=== PATIENT | male | born 2000 | race Caucasian/White ===

== ENCOUNTER 2025-03-11 15:06 | Emergency (ER) | payer SELFPAY ==
[2025-03-11] MEDS ORDERED: AFRIN NASAL MIST 15 ML BOT ONE (16:46)
[2025-03-11 17:11] LABS: #Basophils Less than 0.03 10x3/uL (0.0-0.2); #Eosinophils 0.07 10x3/uL (0.0-0.5); #Monocytes 0.59 10x3/uL (0.0-1.1); #Neutrophils 4.85 10x3/uL (1.5-8.4); %Basophils 0.1 % (0.0-2.0); %Eosinophils 1.0 % (0.0-6.0); %Lymphocytes 17.9 % (18.0-47.0); %Monocytes 8.7 % (0.0-10.0); %Neutrophils 71.9 % (40.0-75.0); Hematocrit 41.5 % (38.8-50.0); Hemoglobin 13.8 g/dL (13.5-17.5); Mean Corpuscular Hemoglobin 28.8 pg (27.0-33.0); Mean Corpuscular Volume 86.5 fL (81.2-95.1); Red Blood Cell (RBC) Count 4.80 10x6/uL (4.32-5.72); White Blood Cell (WBC) Count 6.76 10x3/uL (3.5-10.5)
[2025-03-11 17:14] LABS: Platelet Count 128 10x3/uL (150-450)
[2025-03-11 17:25] LABS: INR-International Normal Ratio 1.0; PTT 29.3 sec (22.0-33.0); Prothrombin Time 10.9 sec (9.5-12.1)
== END 2025-03-11 17:49 | disposition home or self-care (01) ==
LOC: CSHERS 15:06
DX: R04.0 Epistaxis (principal); D69.6 Thrombocytopenia, unspecified
CPT/HCPCS: 85025; 85610; 85730; 99283